=== PATIENT | female | born 1940 | race Caucasian/White ===

== ENCOUNTER 2023-12-25 23:59 | Emergency (ER) | payer MEDICARE, OTHER ==
[~2023-12-25] VITALS: Ht 144.8 cm; Wt 59.0 kg
[2023-12-26 00:20] VITALS: TEMP 98.1
[2023-12-26] MEDS ORDERED: CLONIDINE HCL 0.1 MG TABLET ONE (00:31)
[2023-12-26] MEDS ORDERED: TDAP [DIPH/PERTUSSIS/TET] 0.5 ML VIAL IM ONE (00:32)
[2023-12-26] MEDS: CLONIDINE HCL 0.1 MG TABLET PO ONE (00:40)
[2023-12-26] MEDS: TDAP [DIPH/PERTUSSIS/TET] 0.5 ML VIAL IM ONE (00:41)
[2023-12-26 01:19] VITALS: BP 193/84; O2SAT 99
== END 2023-12-26 01:23 | disposition left against medical advice (07) ==
LOC: ER 12-26 00:07
DX: S01.112A Laceration without foreign body of left eyelid and periocular area, initial encounter (principal); I10 Essential (primary) hypertension; Z88.2 Allergy status to sulfonamides; W01.0XXA Fall on same level from slipping, tripping and stumbling without subsequent striking against object, initial encounter; Y93.89 Activity, other specified; Y92.89 Other specified places as the place of occurrence of the external cause; Y99.8 Other external cause status
CPT/HCPCS: 90715